=== PATIENT | female | born 1955 | race Caucasian/White ===

== ENCOUNTER → 2024-01-08 12:40 | Outpatient (REF) | payer MEDICARE, OTHER, BC, SELFPAY | LOC: DHCBS MAIN 12:40 | PROVIDERS: ATTENDING PHYSICIAN Internal Medicine Cardiovascular Disease; FAMILY PHYSICIAN Nurse Practitioner Adult Health | DX: I10 Essential (primary) hypertension (principal); I34.1 Nonrheumatic mitral (valve) prolapse | CPT/HCPCS: 93306 ==

== ENCOUNTER 2024-09-24 11:26 | Emergency (ER) | payer MEDICARE, OTHER, SELFPAY ==
[2024-09-24 11:27] VITALS: BP 178/100
[2024-09-24 12:00] VITALS: BP 134/67
[2024-09-24 12:14] LABS: % Basophils 0.4 % (0-2); % Eosinophils 0.4 % (0-6); % Immature Granulocytes 0.3 % (0-0.5); % Lymphocytes 14.6 % (20.5-51.1); % Monocytes 9.6 % (1.7-9.3); % Neutrophils 74.7 % (42.2-75.2); Absolute Lymphocytes 1.2 10^3/uL (1.2-3.4); Absolute Monocytes 0.8 10^3/uL (0.1-0.6); Absolute Neutrophils 5.9 10^3/uL (1.4-6.5); Hemoglobin 12.6 g/dL (12.0-16.0); Mean Corp Hgb Conc. 33.2 g/dL (33.0-37.0); Mean Corpuscular Hgb 29.3 pg (27.0-31.0); Mean Corpuscular Volume 88.4 fL (81.0-99.0); Mean Platelet Volume 9.4 fL (7.4-10.4); Nucleated Red Blood Cells % 0 %; Platelet Count 262 10^3/uL (130-400); Red Cell Dist. Width 12.3 % (11.5-14.5); White Blood Cell Count 7.9 10^3/uL (4.8-10.8)
[2024-09-24 12:25] LABS: ALT (SGPT) 17 U/L (0-35); AST (SGOT) 22 U/L (14-36); Albumin 4.5 g/dl (3.5-5.0); Alkaline Phosphatase 99 U/L (38-126); Blood Urea Nitrogen 21 mg/dl (7-17); Calcium 9.5 mg/dl (8.4-10.2); Carbon Dioxide 26 mmol/L (22-30); Chloride 101 mmol/L (98-107); Glucose 113 mg/dl (70-99); Potassium 3.9 mmol/L (3.5-5.1); Sodium 138 mmol/L (135-145); Total Bilirubin 0.6 mg/dl (0.2-1.3); Total Protein 7.6 g/dl (6.3-8.2); eGFR > 60.00
[2024-09-24 12:31] LABS: D-Dimer 9.68 ug/mlFEU (0.00-0.50)
[2024-09-24 12:35] LABS: NT-proBNP 26.4 pg/ml; Troponin I < 0.012 ng/ml
[2024-09-24 13:21] VITALS: BP 138/70
[2024-09-24] MEDS: ELIQUIS 10 MG PO (13:43)
[2024-09-24 14:00] VITALS: BP 136/73
--- NOTE | 2024-09-24 14:24 | ED.GENMED ---
History of Present Illness
<Jones Snaderson PA-C - Last Filed: 09/24/24 15:14>
General
Chief Complaint: Breathing Problem
Time Seen by Provider: 09/24/24 11:41
History of Present Illness
History of Present Illness:
69-year-old female presents to the emergency department for right sided thoracic back pain for the past week. Symptoms are worsening. She had also reports having cough and congestion approximately 2 weeks prior to this. Denies any fevers. Pain
seems to be random and is not always pleuritic in nature. No leg swelling or calf cramping.
Past History
<Jones Sanderson PA-C - Last Filed: 09/24/24 15:14>
Past History
ED Past Medical History: None
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
Social History
Tobacco: Non-smoker
Drug: None
Personal:
Living: with family
Family History
Family History: Other
Review of Systems
<Jones Sanderson PA-C - Last Filed: 09/24/24 15:14>
Review of Systems
Allergies reviewed?: Yes
All Other Systems: ROS reviewed and negative except as documented in HPI and ROS
Phy Exam
<Jones Sanderson PA-C - Last Filed: 09/24/24 15:14>
Physical Exam
Physical Exam:
GEN: Well appearing, NAD, WDWN
Eyes: PERRLA, EOMs intact, no scleral icterus
HENT: NCAT, oral mucosa moist, no JVD
Lungs: Normal respiratory effort, mildly diminished right base breath sounds
Cardiac: Tachycardic, regular, no M/R/G, no peripheral edema. Radial pulses 2+ bilat
Abdomen: S, NT, ND, NABS, no masses or hepatosplenomegaly
Neuro: AO x 3
MSK: No gross deformity or ecchymosis. No edema. No digital clubbing
Skin: No rashes, petechiae. Normal color, no pallor or jaundice.
Psych: Calm, cooperative, proper hygiene
Scores
<Jones Sanderson PA-C - Last Filed: 09/24/24 15:14>
Heart Failure Risk
Heart Failure Risk Score: Not Applicable
Course
<Jones Sanderson PA-C - Last Filed: 09/24/24 15:14>
Orders/Labs/Results
Orders:
Orders
09/24/24 11:27
ECG [Electrocardiogram (*1)] Urgent
Reason for Study: Shortness of Breath
EKG- Treatment ONCE
09/24/24 11:54
CT Chest PE Study Urgent
Comment:
Reason For Exam: pleuritic R back pain, hx of prior PE
09/24/24 11:59
Complete Blood Count/With Diff Urgent
Comprehensive Metabolic Panel Urgent
D-Dimer Urgent
NT-proBNP Urgent
Troponin I Urgent
09/24/24 13:32
Apixaban [Eliquis] 10 mg PO NOW STA
Abnormal Lab Results
09/24/24
11:59
Absolute Monos (auto) 0.8 H 10^3/uL
(0.1-0.6)
Lymphocytes % 14.6 L %
(20.5-51.1)
Monocytes % 9.6 H %
(1.7-9.3)
D-Dimer 9.68 H ug/mlFEU
(0.00-0.50)
BUN 21 H mg/dl
(7-17)
Glucose 113 H mg/dl
(70-99)
09/24/24 11:59
09/24/24 11:59
Vital Signs
Initial and Last Documented VS:
Initial Vital Signs
Temp Pulse Resp BP Pulse Ox
98 F 124 16 178/100 96
09/24/24 11:27 09/24/24 11:27 09/24/24 11:27 09/24/24 11:27 09/24/24 11:27
Last Documented Vital Signs
Temp Pulse Resp BP Pulse Ox
98 F 98 19 136/73 96
09/24/24 11:27 09/24/24 14:00 09/24/24 14:00 09/24/24 14:00 09/24/24 14:00
Ilyalt;Fam Lee, DO - Last Filed: 09/24/24 14:33>
Orders/Labs/Results
Orders:
Orders
09/24/24 11:27
ECG [Electrocardiogram (*1)] Urgent
Reason for Study: Shortness of Breath
EKG- Treatment ONCE
09/24/24 11:54
CT Chest PE Study Urgent
Comment:
Reason For Exam: pleuritic R back pain, hx of prior PE
09/24/24 11:59
Complete Blood Count/With Diff Urgent
Comprehensive Metabolic Panel Urgent
D-Dimer Urgent
NT-proBNP Urgent
Troponin I Urgent
09/24/24 13:32
Apixaban [Eliquis] 10 mg PO NOW STA
Abnormal Lab Results
09/24/24
11:59
Absolute Monos (auto) 0.8 H 10^3/uL
(0.1-0.6)
Lymphocytes % 14.6 L %
(20.5-51.1)
Monocytes % 9.6 H %
(1.7-9.3)
D-Dimer 9.68 H ug/mlFEU
(0.00-0.50)
BUN 21 H mg/dl
(7-17)
Glucose 113 H mg/dl
(70-99)
09/24/24 11:59
09/24/24 11:59
Vital Signs
Initial and Last Documented VS:
Initial Vital Signs
Temp Pulse Resp BP Pulse Ox
98 F 124 16 178/100 96
09/24/24 11:27 09/24/24 11:27 09/24/24 11:27 09/24/24 11:27 09/24/24 11:27
Last Documented Vital Signs
Temp Pulse Resp BP Pulse Ox
98 F 98 19 136/73 96
09/24/24 11:27 09/24/24 14:00 09/24/24 14:00 09/24/24 14:00 09/24/24 14:00
<Jones Sanderson PA-C - Last Filed: 09/24/24 15:14>
MDM/Problems Addressed
MDM/Problems Addressed:
Cardiac bilateral pulmonary embolism is identified. She has no evidence for heart strain on imaging and reassuring troponin and BNP levels. Patient is quite adamant to be discharged home, initially heart rate was elevated however while in the
emergency department heart rates did improve on telemetry, her PESI score is 71 indicating a low risk for outpatient management. I did offer admission to this patient on IV heparin however she declines. Initial dose of Eliquis given the emergency
department observed for 1 hour with no complications. 1 month savings card provided to the patient in 1-month quantity prescribed. Patient will need close pulm follow-up and she will be referred through the PE low risk hotline
<Jones Sanderson PA-C - Last Filed: 09/24/24 15:14>
*Critical Care Note
Total Time (30-74mins, 75-104mins- exclusive of procedures): Not Applicable
ED Attending Note
<Jones Sanderson PA-C - Last Filed: 09/24/24 15:14>
-
Portions of this chart may have been created with voice recognition software.� Occasional wrong word or��sound alike� substitutions may have occurred due to the inherent limitations of voice recognition software.
<Fam Lee, DO - Last Filed: 09/24/24 14:33>
ED Attending Note
Patient seen and examined by attending physician: Yes
I performed the substantive portion of visit, reviewed & personally made and approve the management plan that is documented in note by myself or JANES.: Yes
ED Attending Note:
seen wtih pa agree with ap acute PE, subacute component, looks to be a candidate for outpatient follow-up
Discharge Plan
Departure
Patient Disposition: Home (Routine Discharge)
Date of Disposition: 09/24/24
Time of Disposition: 14:45
Patient with high blood pressure during this ER visit?: No
Discharge Problem:
Bilateral pulmonary embolism
Instructions: ED Low Risk PE
Prescriptions:
New
Eliquis 5 mg tablet
10 mg PO BID Qty: 74 0RF
Referrals:
Mary Kay Hein CRNP [Family Provider] -
Activity Restrictions/Additional Instructions:
You should take your first dose of Eliquis tonight
Return if you develop worsening shortness of breath or chest pain
Follow up with pulmonology in 2-3 days
Interventions
Interventions:
*Risk Screen - Suicide Last Done: 09/24/24 11:27
*General Assessment Last Done: 09/24/24 11:27
*Neglect/Abuse Screening Last Done: 09/24/24 11:27
ED- Fall Risk Assessment Last Done: 09/24/24 12:01
ED- Cardiac Assessment Last Done: 09/24/24 12:01
ED- Pulmonary Assessment Last Done: 09/24/24 12:01
Discharge Date and Time
Print Language: VENEZUELAN
== END 2024-09-24 15:21 | disposition home or self-care (01) ==
LOC: EMR 11:26
PROVIDERS: Physician Assistant; EMERGENCY PHYSICIAN Emergency Medicine; FAMILY PHYSICIAN Nurse Practitioner Adult Health
DX: I26.99 Other pulmonary embolism without acute cor pulmonale (principal); Z86.711 Personal history of pulmonary embolism; Z90.13 Acquired absence of bilateral breasts and nipples
CPT/HCPCS: 99284; 71275; 80053; 83880; 84484; 85025; 85379; 93005; Q9967

== ENCOUNTER → 2024-09-26 09:19 | Outpatient (REF) | payer MEDICARE, OTHER, SELFPAY | LOC: RAD 09:19 | PROVIDERS: ATTENDING PHYSICIAN Nurse Practitioner Adult Health | DX: M25.561 Pain in right knee (principal) | CPT/HCPCS: 73564 ==

== ENCOUNTER → 2024-10-07 06:25 | Outpatient (REF) | payer MEDICARE, OTHER, SELFPAY | LOC: RAD 06:25 | PROVIDERS: ATTENDING PHYSICIAN Nurse Practitioner Adult Health | DX: I26.99 Other pulmonary embolism without acute cor pulmonale (principal); M25.561 Pain in right knee; M79.604 Pain in right leg | CPT/HCPCS: 93971 ==

== ENCOUNTER → 2024-10-10 14:20 | Outpatient (REF) | payer MEDICARE, OTHER, SELFPAY | LOC: DHSLP 14:20 | PROVIDERS: ATTENDING PHYSICIAN Internal Medicine Critical Care Medicine; FAMILY PHYSICIAN Nurse Practitioner Adult Health | DX: G47.33 Obstructive sleep apnea (adult) (pediatric) (principal) | CPT/HCPCS: 95800 ==